=== PATIENT | male | born 1960 | race African-American/Black ===

== ENCOUNTER 2018-06-24 00:32 | Inpatient (IN) | payer MEDICAID ==
[~2018-06-24] VITALS: Ht 190.5 cm; Wt 191.5 kg
[~2018-06-24 00:32] MED LIST: ASPI-247; ATEN50TA; CLON0.2T; ENAL20TA93; HYDR25CA26; SPIR50TA5 PO; VER240ST
[2018-06-24] MEDS ORDERED: cloNIDine HCL 0.1 MG TAB PO ONE (01:30)
[2018-06-24 02:03] LABS: Basophils # (auto) 0 uL; Basophils % (auto) 0.6 % (0.0-2.0); Eosinophils # (auto) 0.1 uL; Hemoglobin 13.1 g/dL (13.5-17.5); Monocytes # (auto) 0.6 uL; White Blood Cell 8.3 10^3/uL (4.4-10.8)
[2018-06-24 02:05] LABS: Hematocrit 42.1 % (41.0-53.0); Lymphocytes # (auto) 1.3 uL; Lymphocytes % (auto) 15.9 % (10.0-50.0); Mean Corpuscular Hemoglobin 26.6 pg (28.0-32.0); Mean Corpuscular Hgb Conc. 31.2 g/dL (32.0-36.0); Mean Corpuscular Volume 85.5 fL (80.0-100.0); Neutrophils # (auto) 6.2 uL; Neutrophils % (auto) 75.5 % (37.0-80.0); Platelet Count (auto) 284 10^3/uL (140-450); Red Blood Cells 4.92 10^6/uL (4.5-5.90); Red Cell Distribution Width 17.1 % (11.8-14.3)
[2018-06-24 02:15] LABS: INR 1.01 (0.9-1.15); Partial Thromboplastin Time 26.7 sec (23.78-33.04); Prothrombin Time 10.8 sec (9.27-12.13)
[2018-06-24 02:20] LABS: Chloride 104 mmol/L (98-107); Potassium 3.9 mmol/L (3.5-5.1); Sodium 141 mmol/L (136-145)
[2018-06-24 02:25] LABS: Amylase 188 U/L (25-115); Anion Gap 12 (5-15); BUN/Creatinine Ratio 11.8; Blood Urea Nitrogen 19 mg/dL (7-18); Calcium 8.5 mg/dL (8.5-10.1); Carbon Dioxide 25 mmol/L (21-32); GFR African American 57 mL/min; GFR Non-African American 47 mL/min; Glucose 158 mg/dL (74-106); Lipase 126 U/L (73-393); Magnesium 2.1 mg/dL (1.6-2.6)
[2018-06-24] MEDS ORDERED: PANTOPRAZOLE 40 MG/10 ML VIAL IV ONE (02:30)
[2018-06-24] MEDS ORDERED: KETOROLAC TROMETH 30 MG/ML 1ML VIAL IV ONE (02:30)
[2018-06-24 02:35] LABS: Nucleated Red Blood Cells % 0.1 %
[2018-06-24 02:44] LABS: Alanine Aminotransferase 23 U/L (16-61); Alkaline Phosphatase 94 U/L (45-117); Aspartate Aminotransferase 17 U/L (15-37); Bilirubin, Total 0.5 mg/dL (0.2-1.0); Total Protein 8.2 g/dL (6.4-8.2)
[2018-06-24] MEDS ORDERED: PIPERACILLIN-TAZOB 3.375GM 100 ML IV ONE (05:00)
[2018-06-24] MEDS ORDERED: ACETAMINOPHEN 325 MG TAB PO PRN (06:15)
[2018-06-24] MEDS ORDERED: TEMAZEPAM 15 MG CAP PO PRN (06:15)
[2018-06-24] MEDS ORDERED: HYDROcodone-ACET 5/325MG TAB PO PRN (06:15)
[2018-06-24] MEDS ORDERED: ONDANSETRON HCL 4 MG/2 ML VIAL IV PRN (06:15)
[2018-06-24] MEDS: SODIUM CHLORIDE 0.9% 1,000 ML IV SCH ×2 (06:36→21:56)
[2018-06-24] MEDS ORDERED: GASTROGRAFIN 120 ML SOL ONE (07:34)
[2018-06-24 09:00] VITALS: BP 125/76
[2018-06-24] MEDS: ATENOLOL 50 MG TAB PO SCH ×2 (10:50→21:44)
[2018-06-24] MEDS: PANTOPRAZOLE 40 MG/10 ML VIAL IV SCH (10:51)
[2018-06-24] MEDS: ENALAPRIL MALEATE 10 MG TAB PO SCH (10:51)
[2018-06-24] MEDS: SPIRONOLACTONE 25 MG TAB PO SCH (10:51)
[2018-06-24] MEDS ORDERED: GABA100C9 PO (11:17)
[2018-06-24] MEDS ORDERED: ALLO100T PO (11:18)
[2018-06-24] MEDS ORDERED: ATOR10TA52 PO (11:18)
[2018-06-24] MEDS ORDERED: HYDR50TA15 PO (11:20)
[2018-06-24] MEDS ORDERED: METF-370 PO (11:20)
[2018-06-24 11:23] VITALS: BP 125/76
[2018-06-24 13:00] VITALS: BP 107/48
[2018-06-24] MEDS: cloNIDine HCL 0.1 MG TAB PO SCH ×2 (13:33→21:44)
[2018-06-24 17:00] VITALS: BP 120/64
[2018-06-24 17:34] LABS: Urine Bacteria NONE SEEN /hpf (None Seen); Urine Blood Negative /uL (Negative); Urine Mucus FEW (None Seen); Urine Specific Gravity 1.027 (1.001-1.035); Urine WBC 2 /hpf (0 - 3)
[2018-06-24 20:00] VITALS: BP 116/78
[2018-06-24 22:00] VITALS: BP 116/78
[2018-06-25 05:00] VITALS: BP 120/69
[2018-06-25 06:13] LABS: Basophils # (auto) 0 uL; Basophils % (auto) 0.2 % (0.0-2.0); Eosinophils # (auto) 0.2 uL; Eosinophils % (auto) 2.1 % (0.0-7.0); Hematocrit 38.7 % (41.0-53.0); Hemoglobin 12.4 g/dL (13.5-17.5); Lymphocytes # (auto) 1.5 uL; Lymphocytes % (auto) 18.4 % (10.0-50.0); Mean Corpuscular Hemoglobin 27.3 pg (28.0-32.0); Mean Corpuscular Volume 85.3 fL (80.0-100.0); Monocytes # (auto) 0.6 uL; Monocytes % (auto) 7.8 % (0.0-12.0); Neutrophils # (auto) 5.7 uL; Neutrophils % (auto) 71.5 % (37.0-80.0); Nucleated Red Blood Cells % 0.1 %; Platelet Count (auto) 232 10^3/uL (140-450); Red Blood Cells 4.53 10^6/uL (4.5-5.90); White Blood Cell 7.9 10^3/uL (4.4-10.8)
[2018-06-25 06:29] LABS: Albumin 2.8 g/dL (3.4-5.0); Calcium 8.3 mg/dL (8.5-10.1); Potassium 4.2 mmol/L (3.5-5.1)
[2018-06-25 06:34] LABS: BUN/Creatinine Ratio 10.7; Bilirubin, Total 0.7 mg/dL (0.2-1.0); Total Protein 7.3 g/dL (6.4-8.2)
[2018-06-25] MEDS: cloNIDine HCL 0.1 MG TAB PO SCH ×2 (06:35→13:46)
[2018-06-25 08:00] VITALS: BP 152/79
[2018-06-25 09:00] VITALS: BP 152/79
[2018-06-25] MEDS: PANTOPRAZOLE 40 MG/10 ML VIAL IV SCH (10:14)
[2018-06-25] MEDS: ATENOLOL 50 MG TAB PO SCH (10:15)
[2018-06-25] MEDS: ENALAPRIL MALEATE 10 MG TAB PO SCH (10:15)
[2018-06-25] MEDS: SPIRONOLACTONE 25 MG TAB PO SCH (10:16)
[2018-06-25] MEDS: SODIUM CHLORIDE 0.9% 1,000 ML IV SCH (10:17)
[2018-06-25 13:00] VITALS: BP 131/85
== END 2018-06-25 18:18 | disposition home or self-care (01) | DRG 247 ==
LOC: EDBD 00:32 → ER 00:36 → OVERFLOW 00:37 → WEST WING 07:38
PROVIDERS: ADMIT Nurse Practitioner; ATTEND Internal Medicine Pulmonary Disease
DX: K56.600 Partial intestinal obstruction, unspecified as to cause (principal); E11.22 Type 2 diabetes mellitus with diabetic chronic kidney disease; E44.0 Moderate protein-calorie malnutrition; E66.01 Morbid (severe) obesity due to excess calories; K56.7 Ileus, unspecified; Z68.43 Body mass index [BMI] 50.0-59.9, adult; E78.5 Hyperlipidemia, unspecified; F17.210 Nicotine dependence, cigarettes, uncomplicated; M10.9 Gout, unspecified; I12.9 Hypertensive chronic kidney disease with stage 1 through stage 4 chronic kidney disease, or unspecified chronic kidney disease; K80.20 Calculus of gallbladder without cholecystitis without obstruction; G47.00 Insomnia, unspecified; N18.9 Chronic kidney disease, unspecified; Z82.49 Family history of ischemic heart disease and other diseases of the circulatory system; Z86.73 Personal history of transient ischemic attack (TIA), and cerebral infarction without residual deficits; Z88.8 Allergy status to other drugs, medicaments and biological substances; Z79.82 Long term (current) use of aspirin; Z79.899 Other long term (current) drug therapy
CPT/HCPCS: 36415; 71045; 74176; 74250; 80053; 81001; 82150; 83690; 83735; 84484; 85025; 85610; 85730; 87040; 93005; 96365; 96375; C9113; J1885; J2543